=== PATIENT | female | born 1980 | race Caucasian/White ===

== ENCOUNTER 2016-09-04 10:12 | Emergency (ER) | payer OTHER ==
--- NOTE | ~2016-09-04 | CR63 ---
[facility] A Service [facility] RADIOLOGY TEXT RESULTS PATIENT: ALINA NOLNA LOCATION: [place] : [birth year] UNIT #: [id number] AGE: [address]: Arina Hernandes APRN SEX: F ORDER DR: [id number] [facility] [address] [place] [address] [place], [place] [address] [id number] E MR#: [id number] Acc #: [id number] NAME: ALINA NOLAN : 1980 SEX: F STUDY DATE/TIME: 09/04/2016 10:59 UNIT: [facility] ROOM: STUDY DESCRIPTION: CR Chest 2 View Attending Physician: Arina Hernandes A.P.R.N. Ordering Physician: Demetrius Trammell M.D. Primary Care Physician: [facility] MEDICAL IMAGING REPORT This report is preliminary unless electronic signature is present EXAM Chest x-ray, 09/04/2016 HISTORY Cough. congestion, fever, wheezing and shortness of breath for the past 2 days. COMPARISON 02/25/2014 TECHNIQUE 2 views of the chest were obtained. FINDINGS PA and lateral examination of the chest upright shows a good expansion of the parenchyma with a normal distribution of the pulmonary vascularity. There is no indication of congestion, effusion, infiltrate, tumor, or nodular density. The pleural reflections and diaphragmatic contours are normal. The cardiac silhouette and mediastinal anatomy is within normal limits. IMPRESSION Normal chest. Dictated by... Florencio Nur M.D. THIS IS AN ELECTRONICALLY VERIFIED REPORT Florencio Nur M.D. at 09/06/2016 9:45 AM RLF/win [facility] A Service [facility] RADIOLOGY TEXT RESULTS PATIENT: ALINA NOLAN LOCATION: [facility] : [birth year] UNIT #: [id number] AGE: [address]: Arina Hernandes APRN SEX: F ORDER DR: TD: 09/04/2016 22:39 JOB #: [id number] MEDICAL IMAGING REPORT Page 1 of 1 COPY
[~2016-09-04 10:12] MED LIST: ACETAMINOPHEN PO; ALBUTEROL17 G1 INH; AMITRYPTYLINE PO; AMOXIL500 M1 PO; BACTRIM DS TABL1 TAB PO; BENZONATATE PO; BODY; CEFTIN PO; CLARITIN10 MG PO; DARVOCET-N 1001 TAB PO; ERYTHROMYCIN F250 MG PO; FLEXERIL PO; FLEXERIL10 MG PO; LORATADINE PO; MULTI-VITAMIN1 TAB PO; NAPROXEN PO; PHENERGAN25 MG PO; PREDNISONE PO; PREVACID PO; PRILOSEC PO; PROTONIX; PROTONIX PO; ROBAXIN PO; TESSALON200 MG PO; TYLENOL #3 PO; ULTRAM PO; VISTARIL PO; VOLTAREN50 MG PO; ZANTAC PO; ZOLOFT PO; [UNRECOGNIZED DRUG - OTHER]; [UNRECOGNIZED DRUG - REMARK]
[2016-09-04 10:48] LABS: INFLUENZA A NEG (NEG); INFLUENZA B POS (NEG)
== END 2016-09-04 12:31 | disposition home or self-care (01) ==
LOC: CED 10:12
PROVIDERS: Nurse Practitioner
DX: J20.9 Acute bronchitis, unspecified (principal); J10.1 Influenza due to other identified influenza virus with other respiratory manifestations; F31.9 Bipolar disorder, unspecified; Z88.8 Allergy status to other drugs, medicaments and biological substances; Z87.891 Personal history of nicotine dependence
CPT/HCPCS: 71020; 87651; 87804; 94640; 99284

== ENCOUNTER 2016-09-14 14:45 | Emergency (ER) | payer OTHER ==
--- NOTE | ~2016-09-14 | CT2 ---
[facility] A Service of [facility] RADIOLOGY TEXT RESULTS PATIENT: ALINA NOLAN LOCATION: [facility] : [birth year] UNIT #: [id number] AGE: [address]: Ashley Barboza SEX: F ORDER DR: [id number] [facility] [address] [place], [place] [address] [id number] E MR#: [id number] Acc #: [id number] NAME: ALINA NOLAN : 1980 SEX: F STUDY DATE/TIME: 09/14/2016 18:15 UNIT: [facility] ROOM: STUDY DESCRIPTION: CT Abd and Pelv W Cont Attending Physician: Ashley Barboza Pa-C Ordering Physician: Ashley Barboza Pa-C Primary Care Physician: [facility], MEDICAL IMAGING REPORT This report is preliminary unless electronic signature is present EXAM CT abdomen and pelvis INDICATIONS Severe epigastric abdominal pain for 2 days. Nausea. Diarrhea. TECHNIQUE CT of the abdomen and pelvis with p.o. and IV contrast. Coronal and sagittal reconstructions were obtained. This CT exam was performed with one or more of the following radiation dose reduction techniques: Automatic exposure control, adjustment of mA and/or kV according to patient size, and iterative reconstruction. COMPARISON CT abdomen dated 06/23/2014. FINDINGS ABDOMEN: There is a peripheral-enhancing mass in the medial segment of the left hepatic lobe adjacent to the falciform ligament. This measures 2.4 cm and is unchanged from the 2013 comparison. This is indicative of a benign hemangioma. There is a smaller lesion in the posterior right hepatic lobe (segment VII) measuring 0.9 cm, also unchanged. The gallbladder is not distended. The pancreas, spleen, adrenal glands, and kidneys are within normal limits. No hydronephrosis. There are 2 benign nonobstructing right renal calculi. There is a small umbilical hernia. The bowel is not dilated. The appendix is normal. The abdominal aorta is normal in caliber. PELVIS: Uterus and ovaries are within normal limits. There is trace free [facility] A Service of [facility] RADIOLOGY TEXT RESULTS PATIENT: ALINA NOLAN LOCATION: [facility] : [birth year] UNIT #: [id number] AGE: [address]: Ashley Barboza SEX: F ORDER DR: june. No enlarged pelvic or inguinal lymph nodes. No acute osseous abnormalities. IMPRESSION 1. No acute findings in the abdomen or pelvis to account for the patient's symptoms. 2. 2 benign lesions in the liver are consistent with benign hemangiomas. These are unchanged from at least 2013. 3. Nonobstructing right renal calculi. Dictated by... Zack Ruiz M.D. THIS IS AN ELECTRONICALLY VERIFIED REPORT Zack Ruiz M.D. at 09/15/2016 3:22 PM RPC/maritza TD: 09/14/2016 22:23 JOB #: [id number] MEDICAL IMAGING REPORT Page 1 of 1 COPY
[2016-09-14 15:39] LABS: BASOPHIL% 0.2 % (0-2.5); HEMATOCRIT 43.1 % (35.0-45.0); HEMOGLOBIN 14.1 gm/dL (12.0-16.0); LYMPHOCYTE# 1.1 X10e3 (1.0-3.5); LYMPHOCYTE% 6.3 % (17.0-45.0); MEAN CELL VOLUME 86.9 FL (83-96); MEAN CORPUSCULAR HEMOGLOBIN 28.5 PG (28-34); MEAN CORPUSCULAR HGB CONC 32.8 g/dL (30-36); MEAN PLATELET VOLUME 7.6 FL (6.5-11.5); MONOCYTE# 0.2 X10e3 (0-1.0); MONOCYTE% 0.8 % (3.0-12.0); NEUTROPHIL# 16.5 X10e3 (1.5-7.1); NEUTROPHIL% 92.7 % (40-75); PLATELET COUNT 297 X10e3 (140-420); RED BLOOD COUNT 4.96 X10e (3.90-5.30); RED CELL DISTRIBUTION WIDTH 13.5 % (11.0-15.5); WHITE BLOOD COUNT 17.8 X10e3 (4.0-10.5)
[2016-09-14 15:40] LABS: DIFF IND YES
[2016-09-14 15:54] LABS: URINE SOURCE CLEAN CATCH
[2016-09-14 15:56] LABS: ALBUMIN SERUM 4.2 g/dL (3.5-5.0); BILIRUBIN, DIRECT 0.1 mg/dL (0.0-0.2); BILIRUBIN,INDIRECT 0.4 mg/dL (0.0-0.9); BILIRUBIN,TOTAL 0.5 mg/dL (0.2-2.0); BUN/CREATININE RATIO 17.14; CALCIUM SERUM 9.3 mg/dL (8.4-10.2); CREATININE SERUM 0.7 mg/dL (0.6-1.4); GLOM FILT RATE Estimated 112.3 mL/min (>60); POTASSIUM 3.8 mmol/L (3.5-5.1); PROTEIN TOTAL SERUM 7.2 g/dL (6.0-8.3)
[2016-09-14 16:04] LABS: PLATELET ESTIMATE NORMAL (NORMAL); RBC NORMAL YES; URINE APPEARANCE CLEAR; URINE BILIRUBIN NEG (NEG); URINE BLOOD NEG (NEG); URINE COLOR YELLOW; URINE GLUCOSE NEG (NEG); URINE KETONE NEG (NEG); URINE LEUKOCYTE ESTERASE NEG (NEG); URINE NITRATE NEG (NEG); URINE PROTEIN NEG (NEG); URINE SPECIFIC GRAVITY 1.018 (1.003-1.035); URINE UROBILINOGEN 0.2 MG/DL (NEG)
[2016-09-14 16:13] LABS: CULTURE INDICATED? NO
== END 2016-09-14 20:00 | disposition home or self-care (01) ==
LOC: CED 14:45
DX: R10.84 Generalized abdominal pain (principal); F31.9 Bipolar disorder, unspecified; G43.909 Migraine, unspecified, not intractable, without status migrainosus; Z98.51 Tubal ligation status; Z88.5 Allergy status to narcotic agent; Z88.8 Allergy status to other drugs, medicaments and biological substances
CPT/HCPCS: 36415; 74177; 80048; 80076; 81003; 83690; 84703; 85025; 96360; 99284; C9113; Q9967

== ENCOUNTER 2016-12-11 11:53 | Emergency (ER) | payer OTHER ==
[2016-12-11 12:34] LABS: BASOPHIL% 0.3 % (0-2.5); EOSINOPHIL# 0.2 X10e3 (0-0.7); EOSINOPHIL% 2.3 % (0.0-7.0); HEMATOCRIT 39.4 % (35.0-45.0); HEMOGLOBIN 12.7 gm/dL (12.0-16.0); LYMPHOCYTE# 1.8 X10e3 (1.0-3.5); LYMPHOCYTE% 25.9 % (17.0-45.0); MEAN CELL VOLUME 89.6 FL (83-96); MEAN CORPUSCULAR HEMOGLOBIN 28.9 PG (28-34); MEAN CORPUSCULAR HGB CONC 32.3 g/dL (30-36); MEAN PLATELET VOLUME 8.5 FL (6.5-11.5); MONOCYTE# 0.6 X10e3 (0-1.0); MONOCYTE% 8.1 % (3.0-12.0); NEUTROPHIL# 4.4 X10e3 (1.5-7.1); NEUTROPHIL% 63.4 % (40-75); PLATELET COUNT 241 X10e3 (140-420); WHITE BLOOD COUNT 6.9 X10e3 (4.0-10.5)
[2016-12-11 12:36] LABS: URINE SOURCE CLEAN CATCH
[2016-12-11 12:37] LABS: DIFF IND NO
[2016-12-11 12:49] LABS: URINE APPEARANCE CLEAR; URINE BILIRUBIN NEG (NEG); URINE BLOOD NEG (NEG); URINE COLOR YELLOW; URINE GLUCOSE NEG (NEG); URINE KETONE NEG (NEG); URINE LEUKOCYTE ESTERASE NEG (NEG); URINE NITRATE NEG (NEG); URINE PH 6.5 (5-8); URINE PROTEIN NEG (NEG); URINE SPECIFIC GRAVITY 1.018 (1.003-1.035); URINE UROBILINOGEN 0.2 MG/DL (NEG)
[2016-12-11 12:56] LABS: CULTURE INDICATED? NO
[2016-12-11 13:11] LABS: ALBUMIN SERUM 4.2 g/dL (3.5-5.0); ALKALINE PHOSPHATASE 54 U/L (32-92); ALT (SGPT) 10 U/L (10-40); AST (SGOT) 18 U/L (10-42); BILIRUBIN,TOTAL 0.4 mg/dL (0.2-2.0); BLOOD UREA NITROGEN 13 mg/dL (9-23); BUN/CREATININE RATIO 18.57; CALCIUM SERUM 9.8 mg/dL (8.4-10.2); CARBON DIOXIDE 25 mmol/L (22-31); CHLORIDE 106 mmol/L (100-111); CREATININE SERUM 0.7 mg/dL (0.6-1.4); GLOM FILT RATE Estimated 112.3 mL/min (>60); GLUCOSE FASTING 93 mg/dL (70-110); LIPASE 35 U/L (22-51); POTASSIUM 4.3 mmol/L (3.5-5.1); PROTEIN TOTAL SERUM 6.7 g/dL (6.0-8.3); SODIUM 137 mmol/L (135-145)
[2016-12-11 13:14] LABS: BILIRUBIN, DIRECT <0.1 mg/dL (0.0-0.2); BILIRUBIN,INDIRECT 0.3 mg/dL (0.0-0.9)
== END 2016-12-11 16:00 | disposition home or self-care (01) ==
LOC: CED 11:53
DX: R10.9 Unspecified abdominal pain (principal); R11.10 Vomiting, unspecified; R19.7 Diarrhea, unspecified; Z88.5 Allergy status to narcotic agent; Z88.8 Allergy status to other drugs, medicaments and biological substances
CPT/HCPCS: 80048; 80076; 81003; 83690; 84703; 85025; 99284